=== PATIENT | female | born 1950 | race Caucasian/White ===

== ENCOUNTER → 2020-09-14 11:58 | Outpatient (CLI) | payer MEDICARE, SELFPAY ==
--- NOTE | ~2020-09-14 | MM_ITS ---
EXAMINATION: MM screening yum[facility] BI w troy HISTORY: Screening TECHNIQUE: Craniocaudal and mediolateral oblique 3-D tomosynthesis images were obtained and synthetic 2-D images were generated. CAD analysis was submitted and interpreted. COMPARISON: Comparison to multiple prior studies sequentially, with oldest reviewed study dated 04/2016. BREAST PARENCHYMAL COMPOSITION: There are scattered areas of fibroglandular density. FINDINGS: There is no evidence of suspicious mass, calcification, or architectural distortion to sugg est malignancy in either breast. There has been no suspicious interval change. IMPRESSION: 1. No mammographic evidence of malignancy. 2. Recommend routine screening mammography in one year. 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
--- NOTE | ~2020-09-14 | DEXA_ITS ---
Bone Density Report Name: Lina Parker Age: 70 Sex: Female Ethnicity: White Date of : 1950 Indication: osteopenia; postmenopausal Referring Provider: EMA, DENI Study: Bone densitometry was performed. Exam Date: September 14, 2020 Accession number: [id number] Bone Density: Region BMD T-score Z-score Classification AP Spine (L1-L4) 0.911 -1.2 0.7 Osteopenia Femoral Neck (Left) 0.664 -1.7 0.0 Osteopenia Total Hip (Left) 0.824 -1.0 0.4 Normal Femoral Neck (Right) 0.669 -1.6 0.1 Osteopenia Total Hip (Right) 0.820 -1.0 0.4 Normal Total Hip Mean 0.822 -1.0 0.4 Normal World Health Organization criteria for BMD impression classify patients as: Normal (T-score at or above -1.0), Osteopenia (T-score between -1.0 and -2.5), or Osteoporosis (T-score at or below -2.5). 10-year Fracture Risk(1): Major Osteoporotic Fracture 9.9% Hip Fracture 1.3% Reported Risk Factors: [place] (), Neck BMD=0.669, BMI=26.6 (1) FRAX(R) Version 3.08. Fracture probability calculated for an untreated patient. Fracture probability may be lower if the patient has received treatment. Previous Exams: Region Exam Age BMD T-score BMD Change BMD Change Date g/cm2 vs Baseline vs Previous AP Spine(L1-L4) 09/14/2020 70 0.911 -1.2 0.041* 0.000 08/15/2019 68 0.911 -1.2 0.041* -0.020 05/20/2017 66 0.931 -1.1 0.062* 0.003 05/01/2015 64 0.928 -1.1 0.059* 0.023* 04/15/2013 62 0.905 -1.3 0.035* -0.029* 04/11/2011 60 0.934 -1.0 0.065* 0.010 03/30/2009 58 0.924 -1.1 0.054* 0.054* 03/26/2007 56 0.870 -1.6 Total Hip(Left) 09/14/2020 70 0.824 -1.0 0.097* 0.012 08/15/2019 68 0.812 -1.1 0.085* 0.026 05/20/2017 66 0.786 -1.3 0.058* 0.014 05/01/2015 64 0.771 -1.4 0.044* 0.024 04/15/2013 62 0.748 -1.6 0.020 -0.034* 04/11/2011 60 0.782 -1.3 0.054* 0.054* 03/30/2009 58 0.727 -1.8 Total Hip(Right) 09/14/2020 70 0.820 -1.0 0.106* 0.030* 08/15/2019 68 0.790 -1.2 0.076* 0.028* 05/20/2017 66 0.762 -1.5 0.048* 0.004 05/01/2015 64 0.758 -1.5 0.044* -0.001 04/15/2013 62 0.760 -1.5 0.046* 0.013 04/11/2011 60 0.746 -1.6 0.032* 0.032* 03/30/2009 58 0.714 -1.9
== END ==
PROVIDERS: PCP Internal Medicine; Visit Provider Nurse Practitioner
DX: Z12.31 Encounter for screening mammogram for malignant neoplasm of breast (principal); Z78.0 Asymptomatic menopausal state; M85.89 Other specified disorders of bone density and structure, multiple sites
CPT/HCPCS: 77063; 77067; 77080

== ENCOUNTER → 2021-09-23 13:19 | Outpatient (CLI) | payer MEDICARE, SELFPAY ==
--- NOTE | ~2021-09-23 | MM_ITS ---
EXAMINATION: MM screening yumiko BI w troy HISTORY: Screening mammogram TECHNIQUE: Craniocaudal and mediolateral oblique 3-D tomosynthesis images were obtained and synthetic 2-D images were generated. CAD analysis was submitted and interpreted. COMPARISON: 09/14/2020, 08/15/2019, 05/31/2018 BREAST PARENCHYMAL COMPOSITION: There are scattered areas of fibroglandular density. FINDINGS: Scattered benign-appearing calcifications are present. There is no evidence of suspicious m ass, calcification, or architectural distortion to suggest malignancy in either breast. There has bee n no suspicious interval change. IMPRESSION: 1. No mammographic evidence of malignancy. 2. Recommend routine screening mammography in one year. BI-RADS Category 2: Benign finding(s). Reviewed, dictated and finalized at location A. 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
== END ==
PROVIDERS: Visit Provider Internal Medicine
DX: Z12.31 Encounter for screening mammogram for malignant neoplasm of breast (principal)
CPT/HCPCS: 77063; 77067

== ENCOUNTER 2021-10-16 00:51 | Day surgery (SDC) | payer MEDICARE, SELFPAY ==
[2021-10-02 13:14] VITALS: BMI 26.1
--- NOTE | 2021-10-15 15:11 | PM.HPGS ---
History of Present Illness History of Present Illness Consent: Risks, benefits, and alternatives have been discussed and questions answered. Patient agrees to proceed with procedure. Chief complaint: hx of colon polyps Narrative: Lina Parker is a 71 year old female with a history of polyps. Her last colonoscopy was 5 years ago Review of Systems Review of Systems: All systems reviewed & are unremarkable except as noted in HPI and below PMFSH Past Medical History Medical History Colon polyps Headache HTN (hypertension) Hyperlipemia Osteopenia after menopause Osteoporosis without current pathological fracture Family History Family History Father Family history of malignant neoplasm CAD (coronary artery disease) Mother Family history of heart disease in male family member before age 55 Endocarditis Social History Social History Years smoked: 10 Smoking status: Former smoker Tobacco type: cigarettes Smoking end date: 11/09/80 Alcohol intake: current Drinks per week: 4 Substance use: never Substance use type: does not use Living arrangements: with family Spiritual care concerns: No Meds Home Medications and Allergies Home Medications Medication Instructions Recorded Confirmed Type ergocalciferol (vitamin D2) 1,250 50,000 unit PO .COMPLEX #12 cap 01/31/20 10/16/21 Rx mcg (50,000 unit) capsule inulin 2 gram chewable tablet 2 g PO DAILY 07/29/21 10/16/21 History lactobacillus combination no.4 3 3,000 mmu cells PO DAILY 07/29/21 10/16/21 History billion cell capsule multivitamin 1 tablet PO DAILY 07/29/21 10/16/21 History atenolol 50 mg-chlorthalidone 25 1 tablet PO DAILY #90 tablet 09/11/21 10/16/21 Rx mg tablet simvastatin 10 mg tablet 10 mg PO DAILY #90 tablet 09/11/21 10/16/21 Rx Allergies Allergy/AdvReac Type Severity Reaction Status Date / Time No Known Allergies Allergy Verified 10/16/21 08:50 Assessment and Plan Assessment and plan (1) Colon cancer screening: Code(s): Z12.11 - Encounter for screening for malignant neoplasm of colon Status: Acute Assessment and Plan: Colonoscopy with possible biopsy or polypectomy or cautery or injection of substances.
[2021-10-16 08:38] VITALS: BP 138/77; PULSE 59; RESP 16; TEMP 36.5; O2SAT 96; BMI 25.9
[2021-10-16] MEDS: LACTATED RINGERS 1,000 ML 150 ML IV CONT (09:14)
--- NOTE | 2021-10-16 09:46 | WPDANESEPPF ---
Anes - Initial Pre Proc Eval Procedure: Operation Date: 10/16/21 10:00 Proposed Procedures p Screening Colonoscopy - William Jones MD Date/Time: 10/16/21 09:46 Surgeon: William Jones MD Pre Op Diagnosis: hx of colon polyps Patient Data Age: 71 Gender: F Height: 1.63 m Weight: 68.7 kg Last Vital Signs Temp 97.7 F 10/16/21 08:38 Pulse 59 L 10/16/21 08:38 Resp 16 10/16/21 08:38 BP 138/77 10/16/21 08:38 Pulse Ox 96 10/16/21 08:38 Allergies Allergy/AdvReac Type Severity Reaction Status Date / Time No Known Allergies Allergy Verified 10/16/21 08:50 Home Medications Medication Instructions Recorded Confirmed Type ergocalciferol (vitamin D2) 1,250 50,000 unit PO .COMPLEX #12 cap 01/31/20 10/16/21 Rx mcg (50,000 unit) capsule inulin 2 gram chewable tablet 2 g PO DAILY 07/29/21 10/16/21 History lactobacillus combination no.4 3 3,000 mmu cells PO DAILY 07/29/21 10/16/21 History billion cell capsule multivitamin 1 tablet PO DAILY 07/29/21 10/16/21 History atenolol 50 mg-chlorthalidone 25 1 tablet PO DAILY #90 tablet 09/11/21 10/16/21 Rx mg tablet simvastatin 10 mg tablet 10 mg PO DAILY #90 tablet 09/11/21 10/16/21 Rx Patient hx anesthesia problems: none Family hx anesthesia problems: none Results Review: All pre-operative results and documents have been reviewed as part of the pre-operative evaluation. [facility] Past Medical History Medical History Colon polyps Headache HTN (hypertension) Hyperlipemia Osteopenia after menopause Osteoporosis without current pathological fracture Family History Family History Father Family history of malignant neoplasm CAD (coronary artery disease) Mother Family history of heart disease in male family member before age 55 Endocarditis Social History Social History Years smoked: 10 Smoking status: Former smoker Tobacco type: cigarettes Smoking end date: 11/09/80 Alcohol intake: current Drinks per week: 4 Substance use: never Substance use type: does not use Living arrangements: with family Spiritual care concerns: No Anes - Eval Final PreProcedure Day of Procedure 10/16/21 09:46 Patient weight: normal Heart: regular rate and rhythm Lungs: clear to auscultation Airway: Mallampati scale class II Neurological: alert and oriented Last oral intake: >/= 8 hours ASA classification: II Emergent: no Anesthetic plan: proceed Anesthesia type and monitoring: general GIVS and standard monitoring Results Review: All pre-operative results and documents have been reviewed as part of the pre-operative evaluation. Informed Consent: The patient's anesthetic plan and its attendant risks and benefits were discussed with the patient/family/POA. Questions were solicited and answers provided to the satisfaction of the patient/family/POA.
[2021-10-16 10:09] VITALS: BP 94/50; PULSE 60; RESP 24; O2SAT 94
[2021-10-16 10:19] VITALS: BP 110/70; PULSE 59; RESP 17; O2SAT 94
[2021-10-16 10:29] VITALS: BP 115/76; PULSE 56; RESP 17; O2SAT 99
== END 2021-10-16 10:32 | disposition home or self-care (01) ==
PROVIDERS: PCP Internal Medicine; Visit Provider Internal Medicine Gastroenterology
PROC: 0DJD8ZZ Inspection of Lower Intestinal Tract, Via Natural or Artificial Opening Endoscopic (ICD-10-PCS; CPT 45378; principal; 2021-10-16 10:00)
DX: Z12.11 Encounter for screening for malignant neoplasm of colon (principal); K64.8 Other hemorrhoids; K57.30 Diverticulosis of large intestine without perforation or abscess without bleeding; Z86.010 Personal history of colon polyps; I10 Essential (primary) hypertension; E78.5 Hyperlipidemia, unspecified; M81.0 Age-related osteoporosis without current pathological fracture; Z87.891 Personal history of nicotine dependence
CPT/HCPCS: G0105; J2704; J7120

== ENCOUNTER 2022-06-16 10:20 | Outpatient (CLI) | payer MEDICARE, SELFPAY ==
[2022-06-16 10:52] LABS: Anion Gap 8 mmol/L (8-16); Blood Urea Nitrogen 22 mg/dL (7-17); Calcium 9.4 mg/dL (8.4-10.2); Carbon Dioxide 29 mmol/L (22-30); Chloride 102 mmol/L (98-107); Estimated Glomerular Filt Rate > 60; Glucose 106 mg/dL (65-110); Sodium 139 mmol/L (137-145)
== END 2022-06-16 10:21 | disposition home or self-care (01) ==
LOC: ANHSURGERY 10:24
PROVIDERS: Anesthesiology; PCP Internal Medicine; Visit Provider Podiatrist Foot & Ankle Surgery
DX: Z01.818 Encounter for other preprocedural examination (principal); Z79.899 Other long term (current) drug therapy
CPT/HCPCS: 36415; 80048

== ENCOUNTER 2022-06-20 00:40 | Day surgery (SDC) | payer MEDICARE, SELFPAY ==
[2022-06-10 08:13] VITALS: BMI 25.7
--- NOTE | 2022-06-10 08:19 | PC.NURSE ---
PRE-OP INSTRUCTIONS, PLEASE READ CAREFULLY Report to the Outpatient Waiting Room, entrance under the green pavilion located off [facility], at time _0630_ on date _06/20/22_. OR Time: _0830_. - You and your visitor will be asked a series of questions to screen for COVID 19 for your protection. - Only one visitor is allowed at this time. - The patient visitor is requested to leave or wait in car when not with patient. - A mask is required within the hospital. Patients may have clear liquids (water, carbonated beverages, clear teas, apple juice) until 3 hours prior to surgery (0530 AM) with a maximum of 20 ounces. - No food from midnight until time of surgery Take the following medications with a SIP of water the morning of surgery: _ATENOLOL-CHLORTHALIDONE__ Medications to discontinue per ANESTHESIA - _PROBIOTIC, MULTIVITAMIN 3 DAYS PRIOR TO SURGERY, Date to take last dose 06/16/22_ Please no make-up, nail italian, hairspray, perfume, deodorant, or body powder the day of surgery. No jewelry (including any body piercings) or valuables the day of surgery, leave them at home. Please take a shower or bath the night before, or the morning of, surgery with an antibacterial soap. Wear comfortable, loose fitting clothing. - Jewelry must be removed prior to entering the operating room. Rings and piercings that are not removed may be cut off. - The hospital will not accept responsibility for valuables. - Please leave all valuables, including medications, at home the day of surgery. If you are going home after surgery, a licensed superintendent drivers must drive you home. - NO public transportation without another adult. - We recommend that an adult stay with you for 24 hours following discharge. - We also recommend that you do not drive, make important decision, drink alcoholic beverages, or take any drugs that were not prescribed by your health care provider for at least 24 hours after your discharge time. Follow any additional instructions given to you from your surgeon. If you or anyone in your household have experienced Covid symptoms in the past week, please notify your surgeon or the nurse liaison at the phone number below for possible testing. Telephone instructions given to ____PT and asked if any additional questions and then verbalized understanding. Patient advised to call surgeon office or pre surgery nurse liaison [phone] if any additional questions.
--- NOTE | ~2022-06-20 | XR_ITS ---
XR surgery orthopedic DATE: 06/20/2022 09:26 INDICATION: Cheilectomy left first metatarsophalangeal joint TECHNIQUE: 1 seconds fluoroscopy time 0.0073 mGy 2. Spot C-arm images of the forefoot COMPARISON: None FINDINGS: Bone detail is limited. There is narrowing at the first metatarsophalangeal joint likely du e to osteoarthritis. IMPRESSION: Limited examination Reviewed, dictated and finalized at Location A. Reviewed, dictated and finalized at location B. IMPRESSION: Limited examination
--- NOTE | 2022-06-20 06:37 | WPDANESEPPF ---
Anes - Initial Pre Proc Eval Procedure: Operation Date: 06/20/22 08:30 Proposed Procedures p Cheilectomy First Metarsal Phalangeal Joint Left Foot - Damion Hilton JR, MD Date/Time: 06/20/22 06:37 Surgeon: Damion Hilton JR, MD Pre Op Diagnosis: painful bone spur left foot Patient Data Age: 71 Gender: F Height: 1.63 m Weight: 68.18 kg Allergies Allergy/AdvReac Type Severity Reaction Status Date / Time No Known Allergies Allergy Verified 06/20/22 06:59 Home Medications Medication Instructions Recorded Confirmed Type inulin 2 gram chewable tablet 2 g PO DAILY 07/29/21 06/20/22 History (Fiber Gummies) lactobacillus combination no.4 3 3,000 mmu cells PO QAM 07/29/21 06/20/22 History billion cell capsule (Probiotic) multivitamin 1 tablet PO QAM 07/29/21 06/20/22 History atenolol 50 mg-chlorthalidone 25 1 tablet PO QAM 06/10/22 06/20/22 History mg tablet ergocalciferol (vitamin D2) 1,250 See Rx Instructions .Route .COMPLEX 06/10/22 06/20/22 History mcg (50,000 unit) capsule simvastatin 10 mg tablet 10 mg PO HS 06/10/22 06/20/22 History melatonin 1 tab-cap HS PRN Sleep 06/12/22 06/20/22 History Patient hx anesthesia problems: none Family hx anesthesia problems: none Results Review: All pre-operative results and documents have been reviewed as part of the pre-operative evaluation. PENDING SALE TO [facility] Past Medical History Medical History Colon polyps Headache HTN (hypertension) Hyperlipemia Osteopenia after menopause Osteoporosis without current pathological fracture Family History Family History Father Family history of malignant neoplasm CAD (coronary artery disease) Mother Family history of heart disease in male family member before age 55 Endocarditis Social History Social History Years smoked: 10 Smoking status: Former smoker Tobacco type: cigarettes Second hand tobacco smoke exposure: No Smoking end date: 11/09/80 Alcohol intake: current Drinks per week: 4 Substance use: never Substance use type: does not use Living arrangements: with family Spiritual care concerns: No Anes - Eval Final PreProcedure Day of Procedure 06/20/22 06:37 Patient weight: overweight Heart: regular rate and rhythm Lungs: clear to auscultation Airway: Mallampati scale class II Neurological: alert and oriented Last oral intake: >/= 8 hours ASA classification: II Emergent: no Anesthetic plan: proceed Anesthesia type and monitoring: general GIVS and standard monitoring Results Review: All pre-operative results and documents have been reviewed as part of the pre-operative evaluation. Informed Consent: The patient's anesthetic plan and its attendant risks and benefits were discussed with the patient/family/POA. Questions were solicited and answers provided to the satisfaction of the patient/family/POA.
[2022-06-20 07:12] VITALS: BP 150/70; PULSE 67; RESP 16; TEMP 37.1; O2SAT 100
[2022-06-20] MEDS: LACTATED RINGERS 1,000 ML 30 ML IV CONT (07:16)
[2022-06-20] MEDS: ceFAZolin 2 GM/D5W 50 ML 2 GM/50 ML BAG IVPB (08:46)
[2022-06-20] MEDS: LIDOCAINE HCL 2% LOCAL INJ 20 ML VIAL 10 ML INFILTRATE (09:24)
[2022-06-20 09:34] VITALS: BP 132/72; PULSE 60; RESP 14; O2SAT 100
--- NOTE | 2022-06-20 09:37 | W.PM.PROC2 ---
Procedure Note - Detailed Date of Procedure 06/20/22 Pre-op Diagnosis Painful bone spur left foot first metatarsal phlangeal joint Post-op Diagnosis Same Procedure Performed Cheilectomy first metatarsal phalangeal joint left foot Surgeon Damion Hilton JR, CHUNM Description of Procedure PROCEDURE IN DETAIL: Under mild sedation, the patient was brought into the operating room, placed on the operating table in supine position. A pneumatic ankle tourniquet was placed about the patient's right ankle. Following general LMA, a local anesthetic block was obtained about the foot and ankle utilizing 20 cc of a 1:1 of 2% Lidocaine plain and 0.5% Marcaine plain. The foot was then scrubbed, prepped, and draped in the usual aseptic manner. An Esmarch bandage was then used to exsanguinate the patient's foot and the pneumatic ankle tourniquet was then inflated. Surgery began in the following manner: Attention was directed to the dorsal aspect of the 1st metatarsophalangeal joint where there was a large osteophyte noted along the dorsomedial aspect of the joint. The incision was made starting along the central shaft of the 1st metatarsal and extending just proximal to the interphalangeal joint of the hallux. The incision was continued deep down through the subcutaneous tissues using sharp and blunt dissection. All bleeders were cauterized as necessary. At this point, the dissection was continued down to the level of the periosteum and capsular structures overlying the 1st metatarsophalangeal joint. A full length periosteum and capsular incision was made just medial to the extensor hallucis longus tendon. The periosteum and capsular structures were freed from the base of the proximal phalanx as well as the distal 1st metatarsal. At this point, the 1st metatarsophalangeal joint was identified. There was significant loss of articular cartilage to the dorsal and medial aspect of head of the 1st metatarsal . There was significant broadening and hypertrophy of the 1st metatarsophalangeal joint with a very large dorsal spur with a fractured dorsal osteophyte noted. Utilizing a sagittal bone saw, the hypertrophied 1st metatarsal was resected dorsally, medially, and laterally. A power bur was used to make sure that there were no rough edges and also to further debride the hypertrophic 1st metatarsal Approximately one third of the dorsal first metatarsal was resected. Next, a rongeur was used to resect all hypertrophic base of the proximal phalanx. Moreover, the wound site was then flushed with copious amounts of sterile saline. Fluoroscopy was adequate resection of the osseous proliferation to the first metatarsal phalangeal joint. Next, the periosteum and capsular structures were reapproximated with 3-0 Vicryl. Next, the subcutaneous structures were reapproximated with 4-0 Vicryl. Next, the skin was reapproximated and coapted utilizing 4-0 Monocryl in running subcuticular suture fashion technique. Upon completion of the procedure, the incision was dressed with Steri-Strips, Adaptic, 4x4s, Kerlix, and Coban. The pneumatic ankle tourniquet was then deflated and a prompt hyperemic response was noted to all digits of the foot. An orthopedic pneumatic boot was then applied to the affected lower extremity. It is important to note that Dr. Hilton was present throughout the procedure. The patient did very well with the procedure and the anesthesia. She was transferred to the recovery room with vital signs stable and vascular status intact to all toes of the foot. Following a period of postoperative monitoring, the patient will be discharged home on the following written and oral postoperative instructions: 1. Keep the dressing clean, dry, and intact. 2. The patient to be protected weight bearing with an orthopedic pneumatic boot. 3. The patient should ice and elevate the affected foot when at rest. 4. The patient should contact Dr. Hilton for all posto
[2022-06-20 10:00] VITALS: BP 140/83; PULSE 46; RESP 20
[2022-06-20 10:30] VITALS: BP 145/80; PULSE 56; RESP 20
== END 2022-06-20 10:45 | disposition home or self-care (01) ==
PROVIDERS: PCP Internal Medicine; Visit Provider Podiatrist Foot & Ankle Surgery
PROC: (CPT 28289; principal; 2022-06-20 08:30)
DX: M25.775 Osteophyte, left foot (principal); Z87.891 Personal history of nicotine dependence; I10 Essential (primary) hypertension; M19.90 Unspecified osteoarthritis, unspecified site; E78.5 Hyperlipidemia, unspecified; M19.072 Primary osteoarthritis, left ankle and foot; M25.572 Pain in left ankle and joints of left foot; E78.00 Pure hypercholesterolemia, unspecified
CPT/HCPCS: 28289; 36415; 80048; 99199; J0690; J2250; J2704; J3010; J7120

== ENCOUNTER 2022-10-06 09:26 | Outpatient (CLI) | payer MEDICARE, SELFPAY ==
[2022-10-06 11:05] LABS: Anion Gap 8 mmol/L (8-16); Blood Urea Nitrogen 22 mg/dL (7-17); Calcium 9.4 mg/dL (8.4-10.2); Carbon Dioxide 27 mmol/L (22-30); Chloride 102 mmol/L (98-107); Estimated Glomerular Filt Rate > 60; Glucose 76 mg/dL (65-110); Potassium 3.7 mmol/L (3.4-5.0); Sodium 137 mmol/L (137-145)
== END 2022-10-06 09:27 | disposition home or self-care (01) ==
LOC: ANHSURGERY 09:29
PROVIDERS: Anesthesiology; PCP Internal Medicine; Visit Provider Podiatrist Foot & Ankle Surgery
DX: Z51.81 Encounter for therapeutic drug level monitoring (principal); Z79.899 Other long term (current) drug therapy
CPT/HCPCS: 36415; 80048

== ENCOUNTER 2022-10-10 00:56 | Day surgery (SDC) | payer MEDICARE, SELFPAY ==
[2022-10-01 09:24] VITALS: BMI 25.7
--- NOTE | 2022-10-01 09:42 | PC.NURSE ---
Report to the Outpatient Waiting Room, entrance under the green pavilion located off [facility], at time ___9:30AM____ on date ___10/10/22____. Planned Procedure Time: __11:30AM . Time changes happen often and if your time is changed the preop area will call you the afternoon before. - You and your visitor will be asked to self-screen and do not enter if you have any COVID symptoms. - Only one visitor is requested with a max of two and NO children visitors are allowed at this time. - The patient visitor may be requested to leave or wait in car when not with patient due to distancing restrictions. - A mask is optional within the hospital. Patients may have clear liquids (water, carbonated beverages, clear teas, apple juice) until 3 hours prior to surgery with a maximum of 20 ounces. - No food from midnight until time of surgery Take the following medications with a SIP of water the morning of surgery: ____NONE Medications to discontinue per physician HOLD ALL VITAMINS/SUPPLEMENTS 3 DAYS PRE-OP Date to take last dose___10/06/22 Please no make-up, nail setswana, hairspray, perfume, deodorant, or body powder the day of surgery. No jewelry (including any body piercings) or valuables the day of surgery, leave them at home. Please take a shower or bath the night before, or the morning of, surgery with an antibacterial soap. Wear comfortable, loose fitting clothing. Children are encouraged to wear pajamas. - Jewelry must be removed prior to entering the operating room. Rings and piercings that are not removed may be cut off. - The hospital will not accept responsibility for valuables. - Please leave all valuables, including medications, at home the day of surgery. If you are going home after surgery, a licensed driver helper must drive you home. - NO public transportation without another adult if you receive anesthesia. - We recommend that an adult stay with you for 24 hours following discharge. - We also recommend that you do not drive, make important decision, drink alcoholic beverages, or take any drugs that were not prescribed by your health care provider for at least 24 hours after your discharge time. Follow any additional instructions given to you from your surgeon. If you or anyone in your household have experienced Covid symptoms in the past week, please notify your surgeon or the nurse liaison at the phone number below for possible testing. Telephone instructions given to __PATIENT and asked if any additional questions and then verbalized understanding. Patient advised to call surgeon office or pre surgery nurse liaison [phone] if any additional questions.
--- NOTE | ~2022-10-10 | XR_ITS ---
XR surgery orthopedic 10/10/2022 12:32 Right foot surgery. TECHNIQUE: Fluoroscopy used during right foot surgery performed by [Damion Hilton JR MD] on 10/10/2022. 2 seconds of fluoroscopy with 1 images captured. ] FINDINGS: Correlate with procedure note. IMPRESSION: Fluoroscopy used during right foot surgery. Please refer to procedural report for details . Reviewed, dictated and finalized at location A. OR MEDICAL DIRECTOR IMPRESSION: Fluoroscopy used during right foot surgery. Please refer to procedu ral report for details.
--- NOTE | 2022-10-10 07:11 | WPDHPUPDATE1 ---
History and Physical Update Update Date/Time: 10/10/22 07:11 History and Physical has been reviewed, including an updated exam of the patient. There are NO changes in the patient's condition. Risks, benefits, and alternatives have been discussed and questions answered. Patient agrees to proceed with procedure.
[2022-10-10 09:40] VITALS: BP 150/77; PULSE 60; RESP 16; TEMP 36.8; O2SAT 100
--- NOTE | 2022-10-10 10:34 | WPDANESEPPF ---
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 Patient Data Age: 72 Gender: F Height: 1.63 m Weight: 68.2 kg Last Vital Signs Temp 36.8 C 10/10/22 09:40 Pulse 60 10/10/22 09:40 Resp 16 10/10/22 09:40 BP 150/77 H 10/10/22 09:40 Pulse Ox 100 10/10/22 09:40 O2 Del Method Room Air 10/10/22 09:40 Allergies Allergy/AdvReac Type Severity Reaction Status Date / Time No Known Allergies Allergy Verified 10/10/22 09:33 Home Medications Medication Instructions Recorded Confirmed Type inulin 2 gram chewable tablet 4 g PO DAILY 07/29/21 10/10/22 History (Fiber Gummies) lactobacillus combination no.4 3 3,000 mmu cells PO QAM 07/29/21 10/10/22 History billion cell capsule (Probiotic) multivitamin 1 tablet PO QAM 07/29/21 10/10/22 History ergocalciferol (vitamin D2) 1,250 See Rx Instructions .Route .COMPLEX 06/10/22 10/10/22 History mcg (50,000 unit) capsule simvastatin 10 mg tablet 10 mg PO HS 06/10/22 10/10/22 History atenolol 50 mg-chlorthalidone 25 1 tablet PO QAM #90 tabs 09/12/22 10/01/22 Rx mg tablet diphenhydramine HCl 50 mg capsule 50 mg PO HS 10/01/22 10/10/22 History Patient hx anesthesia problems: none Family hx anesthesia problems: none Results Review: All pre-operative results and documents have been reviewed as part of the pre-operative evaluation. [facility] Past Medical History Medical History Colon polyps Headache HTN (hypertension) Hyperlipemia Osteopenia after menopause Osteophyte of foot (~06/20/22) Osteoporosis without current pathological fracture Family History Family History Father Family history of malignant neoplasm CAD (coronary artery disease) Mother Family history of heart disease in male family member before age 55 Endocarditis Social History Social History Social History: Caffeine-coffee daily 2 cups Smoking packs per day: 0.2 Smoking cigarettes per day: 4.0 Years smoked: 10 Smoking pack-years: 2.00 Smoking status: Former smoker Tobacco type: cigarettes Second hand tobacco smoke exposure: No Smoking end date: 11/09/80 Alcohol intake: current Drinks per week: 6 Alcohol use details: Wine Substance use: never Substance use type: does not use Living arrangements: with family Additional living arrangements comments: [facility] Spiritual care concerns: No Anes - Eval Final PreProcedure Day of Procedure 10/10/22 10:34 Patient weight: normal Heart: regular rate and rhythm Lungs: clear to auscultation Airway: Mallampati scale class II Neurological: alert and oriented Last oral intake: >/= 8 hours ASA classification: II Emergent: no Anesthetic plan: proceed Anesthesia type and monitoring: general Results Review: All pre-operative results and documents have been reviewed as part of the pre-operative evaluation. Informed Consent: The patient's anesthetic plan and its attendant risks and benefits were discussed with the patient/family/POA. Questions were solicited and answers provided to the satisfaction of the patient/family/POA.
[2022-10-10] MEDS: LACTATED RINGERS 1,000 ML 30 ML IV CONT (10:59)
[2022-10-10] MEDS: ceFAZolin 2 GM/D5W 50 ML 2 GM/50 ML BAG IVPB (11:50)
[2022-10-10] MEDS: LIDOCAINE HCL 2% LOCAL INJ 20 ML VIAL 10 ML INFILTRATE (12:03)
[2022-10-10 12:36] VITALS: BP 122/71; PULSE 58; RESP 14; O2SAT 100
--- NOTE | 2022-10-10 12:59 | W.PM.PROC2 ---
Procedure Note - Detailed Date of Procedure 10/10/22 Pre-op Diagnosis Arthritis 1st metatarsal phlalangeal joint right foot Post-op Diagnosis Same Procedure Performed Cheilectomy first metatarsal phalangeal joint right foot Surgeon Damion Hilton JR, VLAD Anesthesia General and Local Indications Painful first metatarsal phalangeal joint bone spur Findings Dorsal cartilage degeneration Description of Procedure PROCEDURE IN DETAIL: Under mild sedation, the patient was brought into the operating room, placed on the operating table in supine position. A pneumatic ankle tourniquet was placed about the patient's right ankle. Following general LMA, a local anesthetic block was obtained about the foot and ankle utilizing 20 cc of a 1:1 of 2% Lidocaine plain and 0.5% Marcaine plain. The foot was then scrubbed, prepped, and draped in the usual aseptic manner. An Esmarch bandage was then used to exsanguinate the patient's foot and the pneumatic ankle tourniquet was then inflated. Surgery began in the following manner: Attention was directed to the dorsal aspect of the 1st metatarsophalangeal joint where there was a large osteophyte noted along the dorsomedial aspect of the joint. The incision was made starting along the central shaft of the 1st metatarsal and extending just proximal to the interphalangeal joint of the hallux. The incision was continued deep down through the subcutaneous tissues using sharp and blunt dissection. All bleeders were cauterized as necessary. At this point, the dissection was continued down to the level of the periosteum and capsular structures overlying the 1st metatarsophalangeal joint. A full length periosteum and capsular incision was made just medial to the extensor hallucis longus tendon. The periosteum and capsular structures were freed from the base of the proximal phalanx as well as the distal 1st metatarsal. At this point, the 1st metatarsophalangeal joint was identified. There was moderate loss of articular cartilage to the dorsal aspect of head of the 1st metatarsal . There was significant broadening and hypertrophy of the 1st metatarsophalangeal joint with a very large dorsal spur. Utilizing a sagittal bone saw, the hypertrophied 1st metatarsal was resected dorsally, medially, and laterally. A power bur was used to make sure that there were no rough edges and also to further debride the hypertrophic 1st metatarsal Approximately one third of the dorsal first metatarsal was resected. Next, a rongeur was used to resect all hypertrophic base of the proximal phalanx. Moreover, the wound site was then flushed with copious amounts of sterile saline. Fluoroscopy was adequate resection of the osseous proliferation to the first metatarsal phalangeal joint. Next, the periosteum and capsular structures were reapproximated with 4.0 Vicryl. Next, the subcutaneous structures were reapproximated with 4-0 Vicryl. Next, the skin was reapproximated and coapted utilizing 4-0 Monocryl in running subcuticular suture fashion technique. Upon completion of the procedure, the incision was dressed with Steri-Strips, Adaptic, 4x4s, Kerlix, and Coban. The pneumatic ankle tourniquet was then deflated and a prompt hyperemic response was noted to all digits of the foot. A CAM Walker Boot was then applied to the affected lower extremity. It is important to note that Dr. Hilton was present throughout the procedure. The patient did very well with the procedure and the anesthesia. He was transferred to the recovery room with vital signs stable and vascular status intact to all toes of the foot. Following a period of postoperative monitoring, the patient will be discharged home on the following written and oral postoperative instructions: 1. Keep the dressing clean, dry, and intact. 2. The patient to be protected weight bearing with a surgical shoe. 3. The patient should ice and elevate the affected foot when at rest. 4. Th
[2022-10-10 13:00] VITALS: BP 138/72; PULSE 56; RESP 20
[2022-10-10 13:30] VITALS: BP 138/73; PULSE 56; RESP 20
[2022-10-10 13:45] VITALS: BP 138/73; PULSE 56; RESP 20
== END 2022-10-10 13:50 | disposition home or self-care (01) ==
PROVIDERS: PCP Internal Medicine; Visit Provider Podiatrist Foot & Ankle Surgery
PROC: (CPT 28289; principal; 2022-10-10 11:30)
DX: M19.071 Primary osteoarthritis, right ankle and foot (principal); I10 Essential (primary) hypertension; E78.5 Hyperlipidemia, unspecified; M81.0 Age-related osteoporosis without current pathological fracture; Z87.891 Personal history of nicotine dependence
CPT/HCPCS: 28289; 99199; J0690; J2405; J2704; J3010; J7120

== ENCOUNTER → 2022-10-21 14:32 | Outpatient (CLI) | payer MEDICARE, SELFPAY ==
--- NOTE | ~2022-10-21 | DEXA_ITS ---
Bone Density Report Name: THOMAS AMAYA Age: 72 Sex: Female Ethnicity: White Date of : 1950 Indication: osteopenia; postmenopausal Referring Provider: Ana Luisa Bertrand Study: Bone densitometry was performed. Exam Date: October 21, 2022 Accession number: [id number] Bone Density: Region BMD T-score Z-score Classification AP Spine (L1-L4) 0.909 -1.3 0.9 Osteopenia Femoral Neck (Left) 0.646 -1.8 0.0 Osteopenia Total Hip (Left) 0.820 -1.0 0.5 Normal Femoral Neck (Right) 0.658 -1.7 0.1 Osteopenia Total Hip (Right) 0.810 -1.1 0.4 Osteopenia Total Hip Mean 0.815 -1.1 0.5 Osteopenia World Health Organization criteria for BMD impression classify patients as: Normal (T-score at or above -1.0), Osteopenia (T-score between -1.0 and -2.5), or Osteoporosis (T-score at or below -2.5). 10-year Fracture Risk(1): Major Osteoporotic Fracture 11% Hip Fracture 2.0% Reported Risk Factors: [place] (), Neck BMD=0.646, BMI=25.4 (1) FRAX(R) Version 3.08. Fracture probability calculated for an untreated patient. Fracture probability may be lower if the patient has received treatment. Previous Exams: Region Exam Age BMD T-score BMD Change BMD Change Date g/cm2 vs Baseline vs Previous AP Spine(L1-L4) 10/21/2022 72 0.909 -1.3 0.040* -0.001 09/14/2020 70 0.911 -1.2 0.041* 0.000 08/15/2019 68 0.911 -1.2 0.041* -0.020 05/20/2017 66 0.931 -1.1 0.062* 0.003 05/01/2015 64 0.928 -1.1 0.059* 0.023* 04/15/2013 62 0.905 -1.3 0.035* -0.029* 04/11/2011 60 0.934 -1.0 0.065* 0.010 03/30/2009 58 0.924 -1.1 0.054* 0.054* 03/26/2007 56 0.870 -1.6 Total Hip(Left) 10/21/2022 72 0.820 -1.0 0.093* -0.004 09/14/2020 70 0.824 -1.0 0.097* 0.012 08/15/2019 68 0.812 -1.1 0.085* 0.026 05/20/2017 66 0.786 -1.3 0.058* 0.014 05/01/2015 64 0.771 -1.4 0.044* 0.024 04/15/2013 62 0.748 -1.6 0.020 -0.034* 04/11/2011 60 0.782 -1.3 0.054* 0.054* 03/30/2009 58 0.727 -1.8 Total Hip(Right) 10/21/2022 72 0.810 -1.1 0.096* -0.010 09/14/2020 70 0.820 -1.0 0.106* 0.030* 08/15/2019 68 0.790 -1.2 0.076* 0.028* 05/20/2017 66 0.762 -1.5 0.048* 0.004 05/01/2015 64 0.758 -1.5 0.044* -0.001 04/15/2013 62 0.760 -1.5 0.046*
--- NOTE | ~2022-10-21 | MM_ITS ---
EXAMINATION: MM screening yumiko BI w troy HISTORY: Screening TECHNIQUE: Craniocaudal and mediolateral oblique 3-D tomosynthesis images were obtained and synthetic 2-D images were generated. CAD analysis was submitted and interpreted. COMPARISON: Comparison to multiple prior studies sequentially, with oldest reviewed study dated 05/14/2016. BREAST PARENCHYMAL COMPOSITION: There are scattered areas of fibroglandular density. FINDINGS: There is no evidence of suspicious mass, calcification, or architectural distortion to sugg est malignancy in either breast. There has been no suspicious interval change. IMPRESSION: 1. No mammographic evidence of malignancy. 2. Recommend routine screening mammography in one year. BI-RADS Category 1: Negative Reviewed, dictated and finalized at location B. ETING OPERATIONS ASSISTANT
== END ==
PROVIDERS: PCP Internal Medicine; Visit Provider Nurse Practitioner
DX: Z12.31 Encounter for screening mammogram for malignant neoplasm of breast (principal); Z78.0 Asymptomatic menopausal state; M85.89 Other specified disorders of bone density and structure, multiple sites
CPT/HCPCS: 77063; 77067; 77080

== ENCOUNTER → 2023-10-23 10:10 | Outpatient (CLI) | payer MEDICARE, SELFPAY ==
--- NOTE | ~2023-10-23 | MM_ITS ---
EXAMINATION: MM screening yumiko BI w troy HISTORY: Screening TECHNIQUE: Craniocaudal and mediolateral oblique 3-D tomosynthesis images were obtained and synthetic 2-D images were generated. CAD analysis was submitted and interpreted. COMPARISON: Comparison to multiple prior studies sequentially, with oldest reviewed study dated 05/20. BREAST PARENCHYMAL COMPOSITION: There are scattered areas of fibroglandular density. FINDINGS: There is no evidence of suspicious mass, calcification, or architectural distortion to sugg est malignancy in either breast. There has been no suspicious interval change. IMPRESSION: 1. No mammographic evidence of malignancy. 2. Recommend routine screening mammography in one year. BI-RADS Category 1: Negative Reviewed, dictated and finalized at location A. ZING MACHINE BACK TENDER
== END ==
PROVIDERS: PCP Nurse Practitioner; Visit Provider Nurse Practitioner
DX: Z12.31 Encounter for screening mammogram for malignant neoplasm of breast (principal)
CPT/HCPCS: 77063; 77067

== ENCOUNTER 2024-10-24 12:10 | Outpatient (CLI) | payer MEDICARE, SELFPAY ==
--- NOTE | ~2024-10-24 | MM_ITS ---
EXAMINATION: MM screening yumiko BI w troy HISTORY: Screening TECHNIQUE: Craniocaudal and mediolateral oblique 3-D tomosynthesis images were obtained and synthetic 2-D images were generated. CAD analysis was submitted and interpreted. COMPARISON: Comparison to multiple prior studies sequentially, with oldest reviewed study dated 05/31. BREAST PARENCHYMAL COMPOSITION: Not dense: There are scattered areas of fibroglandular density. FINDINGS: There is a new focal asymmetry in the upper outer quadrant of the right breast. The left br east is stable without evidence for malignancy. IMPRESSION: 1. New right breast asymmetry. 2. Additional mammographic views and possible breast ultrasound are recommended. BI-RADS Category 0: Incomplete: Needs additional imaging evaluation. Reviewed, dictated and finalized at location B. TANK CAR UNLOADER IMPRESSION: 1. New right breast asymmetry. 2. Additional mammographic views and possible breast ultrasound are recommended . BI-RADS Category 0: Incomplete: Needs additional imaging evaluation.
== END 2024-10-24 12:11 | disposition home or self-care (01) ==
PROVIDERS: PCP Nurse Practitioner; Visit Provider Nurse Practitioner
DX: Z12.31 Encounter for screening mammogram for malignant neoplasm of breast (principal); R92.8 Other abnormal and inconclusive findings on diagnostic imaging of breast
CPT/HCPCS: 77063; 77067

== ENCOUNTER 2024-10-28 08:36 | Outpatient (CLI) | payer MEDICARE, SELFPAY ==
--- NOTE | ~2024-10-28 | MMUS_ITS ---
EXAMINATION: MM diagnostic yumiko RT w troy, US breast RT limited HISTORY: Follow-up right breast asymmetry TECHNIQUE: Additional 3-D tomosynthesis images of the right breast were performed and synthetic 2-D i mages were generated. CAD analysis was submitted and interpreted. High resolution Limited right breas t ultrasound was performed. COMPARISON: Comparison to multiple prior studies sequentially, with oldest reviewed study dated 05/2019. BREAST PARENCHYMAL COMPOSITION: Not dense: There are scattered areas of fibroglandular density. FINDINGS: MAMMOGRAPHIC FINDINGS: There are no suspicious masses, calcifications or architectural distortion in the right breast to sug gest malignancy. ULTRASOUND: Limited right breast ultrasound: At 9:00, 5 cm from the nipple there is a 4 mm cyst. No suspicious ma sses to suggest malignancy. IMPRESSION: 1. No evidence for malignancy in the right breast. Benign finding. 2. Routine yearly screening mammogram and regular clinical breast examination are recommended. BI-RADS Category 2: Benign finding(s). Reviewed, dictated and finalized at location B. PAINTER IMPRESSION: 1. No evidence for malignancy in the right breast. Benign finding. 2. Routine yearly screening mammogram and regular clinical breast examination a re recommended. BI-RADS Category 2: Benign finding(s).
== END 2024-10-28 08:37 | disposition home or self-care (01) ==
LOC: CHSIMG 08:36
PROVIDERS: PCP Nurse Practitioner; Visit Provider Nurse Practitioner
DX: N64.89 Other specified disorders of breast (principal)
CPT/HCPCS: 76642; 77061; 77065; G0279

== ENCOUNTER 2025-08-24 08:18 | Outpatient (CLI) | payer MEDICARE, SELFPAY ==
--- NOTE | ~2025-08-24 | DEXA_ITS ---
Bone Density Report Name: THOMAS AMAYA Age: 74 Sex: Female Ethnicity: White Date of : 1950 Indication: osteopenia; height loss; Referring Provider: Danyell Mercado Study: Bone densitometry was performed. Exam Date: August 24, 2025 Accession number: [id number] Bone Density: Region BMD T-score Z-score Classification AP Spine(L1-L4) 0.917 -1.2 1.1 Osteopenia Femoral Neck (Left) 0.590 -2.3 -0.4 Osteopenia Total Hip (Left) 0.741 -1.6 0.0 Osteopenia Femoral Neck (Right) 0.630 -2.0 0.0 Osteopenia Total Hip (Right) 0.774 -1.4 0.3 Osteopenia Total Hip Mean 0.758 -1.5 0.2 Osteopenia World Health Organization criteria for BMD impression classify patients as: Normal (T-score at or above -1.0), Osteopenia (T-score between -1.0 and -2.5), or Osteoporosis (T-score at or below -2.5). 10-year Fracture Risk(1): Major Osteoporotic Fracture 14% Hip Fracture 3.5% Reported Risk Factors: [place] (), Neck BMD=0.590, BMI=27.4 (1) FRAX(R) Version 3.08. Fracture probability calculated for an untreated patient. Fracture probability may be lower if the patient has received treatment. Previous Exams: -- Region Exam Age BMD T-score BMD Change BMD Change Date g/cm2 vs Baseline vs Previous -- AP Spine (L1-L4) 08/24/2025 74 0.917 -1.2 5.4%* 0.8% 10/21/2022 72 0.909 -1.3 4.6%* -0.1% 09/14/2020 70 0.911 -1.2 4.7%* 0.0% 08/15/2019 68 0.911 -1.2 4.8%* -2.2% 05/20/2017 66 0.931 -1.1 7.1%* 0.3% 05/01/2015 64 0.928 -1.1 6.8%* 2.6%* 04/15/2013 62 0.905 -1.3 4.1%* -3.1%* 04/11/2011 60 0.934 -1.0 7.5%* 1.1% 03/30/2009 58 0.924 -1.1 6.3%* 6.3%* 03/26/2007 56 0.870 -1.6 Total Hip(Left) 08/24/2025 74 0.741 -1.6 1.9% -9.6%* 10/21/2022 72 0.820 -1.0 12.8%* -0.4% 09/14/2020 70 0.824 -1.0 13.3%* 1.5% 08/15/2019 68 0.812 -1.1 11.6%* 3.3% 05/20/2017 66 0.786 -1.3 8.0%* 1.9% 05/01/2015 64 0.771 -1.4 6.1%* 3.2% 04/15/2013 62 0.748 -1.6 2.8% -4.3%* 04/11/2011 60 0.782 -1.3 7.5%* 7.5%* 03/30/2009 58 0.727 -1.8 Total Hip(Right) 08/24/2025 74 0.774 -1.4 8.3%* -4.5%* 10/21/2022 72 0.810 -1.1 13.5%* -1.2% 09/14/2020 70 0.820 -1.0 14.9%* 3.8%* 08/15/2019 68 0.790 -1.2 10.7%* 3.7%* 05/20/2017 66 0.762 -1.5 6.7%* 0.5% 05/01/2015 64 0.758 -1.5 6.2%* -0.2% 04/15/2013 62 0.760 -1.5 6.4%* 1.8% 04/11/2011 60 0.746 -1.6 4.5%* 4.5%* 03/30/2009 58 0.714 -1.9 -- *Denotes significance at 95% confidence level, LSC for AP Spine = 0.022 g/cm2, LSC for Total Hip = 0.027 g/cm2 Clinical Information Provided by Patient: Has used the following medications: Fosamax (i.e. alendronate), Vitamin D, Calcium Patient maximum height was 64 Menopause Age: 50 Does not regularly consume dairy products Drinks caffeinated beverages Onset of menses at age 13 Number of children 2 Impression: The patient has low bone mass, based on the Left Femoral Neck T-score. The patient has an estimated ten-year risk of hip fracture of 3.5% and an estimated ten-year risk of major fracture of 14%, based on the WHO FRAX algorithm. The BMD for the Total Hip(Left) decreased, changing by -9.6% since the last DXA exam. The BMD for the Total Hip(Right) decreased, changing by -4.5% since the last DXA exam. Discussion: BONE DENSITY IS LOW AT ONE OR MORE SKELETAL SITES. THE PATIENT'S BMD AND CLINICAL RISK FACTORS CONTRIBUTE TO THIS PATIENT'S INCREASED RISK OF FRACTURE. This patient's lowest T-score is low at one or more skeletal sites. It meets the World Health Organization's (WHO) criteria for ?low bone mass? (T-score between -1.0 and -2.5). The patient's 10-year risk of hip fracture as calculated by FRAX exceeds the threshold where pharmacological therapy is recommended by the National Osteoporosis Foundation (NOF). However, all treatment decisions require clinical judgment and consideration of individual patient factors, including patient preferences, comorbidities, previous drug use, risk factors not captured in the FRAX model (e.g., frailty, falls, vitamin D deficiency, increased bone turnover, interval significant decline in bone density) and possible under or overestimation of fracture risk by FRAX. The patient should follow a healthful lifestyle (good nutrition with adequate calcium and vitamin D, and appropriate weight-bearing exercise). Follow-Up: Consider a repeat BMD and Vertebral Fracture Assessment (VFA) exam in 2 years or sooner if medically necessary, to reassess this patient's status. Reported by: JERICA on 08/24/2025 8:40:00 AM. Reviewed, dictated and finalized at location A.
== END 2025-08-24 08:19 | disposition home or self-care (01) ==
LOC: MICIMG 08:18
PROVIDERS: PCP Nurse Practitioner; Visit Provider Nurse Practitioner
DX: Z78.0 Asymptomatic menopausal state (principal); M85.88 Other specified disorders of bone density and structure, other site; M85.852 Other specified disorders of bone density and structure, left thigh; M85.851 Other specified disorders of bone density and structure, right thigh
CPT/HCPCS: 77080

== ENCOUNTER 2025-10-26 10:32 | Outpatient (CLI) | payer MEDICARE, SELFPAY ==
--- NOTE | ~2025-10-26 | MM_ITS ---
EXAMINATION: MM screening yumiko BI w troy HISTORY: Screening TECHNIQUE: Craniocaudal and mediolateral oblique 3-D tomosynthesis images were obtained and synthetic 2-D images were generated. CAD analysis was submitted and interpreted. COMPARISON: Comparison to multiple prior studies sequentially, with oldest reviewed study dated 09/14/2020. BREAST PARENCHYMAL COMPOSITION: Not dense: There are scattered areas of fibroglandular density. FINDINGS: There is no evidence of suspicious mass, calcification, or architectural distortion to suggest malignancy in either breast. There has been no suspicious interval change. IMPRESSION: 1. No mammographic evidence of malignancy. 2. Recommend routine screening mammography in one year. BI-RADS CATEGORY 1 - NEGATIVE Reviewed, dictated and finalized at location O. MILL INSPECTOR
== END 2025-10-26 10:33 | disposition home or self-care (01) ==
LOC: MICIMG 10:34
PROVIDERS: PCP Nurse Practitioner; Visit Provider Nurse Practitioner
DX: Z12.31 Encounter for screening mammogram for malignant neoplasm of breast (principal)
CPT/HCPCS: 77063; 77067